=== PATIENT | female | born 1955 | race Caucasian/White ===

== ENCOUNTER 2024-10-15 14:53 | Emergency (ER) | payer OTHER ==
[2024-10-15] MEDS ORDERED: PHENAZOPYRIDINE 100MG TAB PO ONE (15:47)
[2024-10-15] MEDS ORDERED: KETOROLAC 30 MG/ML INJ ONE (15:47)
[2024-10-15] MEDS ORDERED: ACETAMINOPHEN 500 MG TAB ONE (15:47)
[2024-10-15 15:57] LABS: Specific Gravity > 1.030 (1.005-1.030); Sqamous Epithelial <5 /HPF (None Seen); Urine Bacteria <20 /HPF (<20); Urine Bilirubin NEGATIVE (Negative); Urine Blood Trace (Negative); Urine Clarity Clear (Clear); Urine Color Colorless (Yellow); Urine Culture Reflex Order NOT NEEDED; Urine Glucose 4+ (Over) (Negative); Urine Ketones NEGATIVE (Negative); Urine Micro Reflex YN NO BILL MICROSCOPIC; Urine Mucus Slight /HPF (None Seen); Urine Nitrite NEGATIVE (Negative); Urine Protein NEGATIVE (Negative); Urine Urobilinogen Normal (Normal); Urine WBC <5 /HPF (<5)
--- NOTE | 2024-10-15 16:13 | EDPHYS ---
Physician Documentation [facility] Name: Agnes De La Torre Age: 68 yrs Sex: Female : 1955 Arrival Date: 10/15/2024 Time: 14:53 Bed 14 Private MD: ED Physician Hany Bazan HPI: 10/15 15:27 This 68 yrs old Female presents to ER via Ambulatory with complaints of ec2 Urinary Problem - burning sensation blood in urine. 15:27 Patient arrives today for evaluation of dysuria. Reports has been having 1 week of ec2 symptoms. Patient reports increased urinary frequency as well as burning with urination. History of UTIs. No fevers or chills, no nausea or vomiting, denies systemic signs and symptoms. Patient reports no medication allergies, no antibiotic allergies.. Historical: - Allergies: 15:22 No Known Allergies; ap3 - PMHx: 15:22 Hypertensive disorder; Diabetes mellitus; Hypothyroidism; ap3 - PSHx: 15:22 Total abdominal hysterectomy; ap3 - Immunization history:: Adult Immunizations unknown. - Infectious Disease History:: Denies. - Social history:: Smoking status: Patient denies any tobacco usage or history of. ROS: 15:27 Constitutional: as per hpi ec2 Exam: 15:27 Constitutional: GEN: NAD Head: atraumatic Eyes: EOMI Ears: External ears are ec2 normal. CV: Tachycardia LUNGS: no respiratory distress ABD: non-distended, soft, nontender, no guarding, not rigid SKIN: no evidence of rashes MSK: no evidence of trauma Vital Signs: 15:20 BP 188 / 76 Sitting; Pulse 101; Resp 16; Temp 98.3; Pulse Ox 96% ; Weight 58.97 kg; ap3 Height 5 ft. 1 in. ; Pain 10/10; 16:49 BP 162 / 78; Pulse 89; Resp 18; Temp 97.9; Pulse Ox 99% on R/A; ph 15:20 Body Mass Index 24.56 (58.97 kg, 154.94 cm) ap3 15:20 Pain Scale: Adult ap3 MDM: 15:27 Data reviewed: vital signs, nurses notes. ED course: Patient arrives today for ec2 evaluation of dysuria. Examination yields a reassuring abdominal examination, slight tachycardia. Will obtain urine studies, will treat the patient symptoms. Suspect UTI, doubt appendicitis, doubt diverticulitis.. 15:32 Medical Screening Exam initiated ec2 16:12 ED course: On reassessment patient is well-appearing no acute distress. Suspect urinary ec2 tract infection, will start the patient on antibiotics and have her follow-up with primary care. Return precautions given.. 10/15 15:24 Order name: GRADY; Complete Time: 16:01 ec2 Administered Medications: 16:01 Drug: Ketorolac IM 15 mg IM once Route: IM; Site: right deltoid; ph 16:50 Follow up: Response: No adverse reaction ph 16:01 Drug: Acetaminophen PO 1000 mg PO once Route: PO; ph 16:50 Follow up: Response: No adverse reaction ph 16:01 Drug: Phenazopyridine PO 200 mg PO once Route: PO; ph 16:50 Follow up: Response: No adverse reaction ph 16:49 Drug: Trimethoprim-Sulfamethoxazole PO (160 mg-800 mg (DS) 1 tablet PO once Route: PO; ph 16:50 Follow up: Response: No adverse reaction; Medication administered at discharge. ph Disposition Summary: 10/15/24 16:12 Discharge Ordered Notes: Location: Home ec2 Condition: Stable ec2 Diagnosis - UTI/ Urinary tract infection, site not specified ec2 Followup: ec2 - With: Private Physician - When: - Reason: Re-evaluation by your physician Discharge Instructions: - Discharge Summary Sheet ec2 - Urinary Tract Infection, Adult ec2 Forms: - Medication Reconciliation Form ec2 - Antibiotic Education ec2 - Prescription Opioid Use ec2 - Patient Portal Instructions ec2 - Leadership Thank You Letter ec2 Prescriptions: - Pyridium 200 mg Oral Tablet - take 1 tablet ORAL route every 8 hours for 3 days; 9 tablet; Refills: 0, ec2 Product Selection Permitted - Bactrim DS 800-160 mg Oral Tablet - take 1 tablet ORAL route every 12 hours for 7 days; 14 tablet; Refills: 0, ec2 Product Selection Permitted Signatures: Dispatcher [employer] Deirdre Ghotra RN RN Cari Lobo RN RN ap3 Hany Bazan MD MD ec2 Corrections: (The following items were deleted from the chart) 15:24 15:24 Urinalysis W/Microscopic+U.LAB.BRZ ordered. EDMS EDMS
--- NOTE | 2024-10-15 16:13 | ER ---
[facility] Ag[facility] Age: 68 yrs Sex: Female : 1955 Arrival Date: 10/15/2024 Time: 14:53 Bed 14 Private MD: Diagnosis: UTI/ Urinary tract infection, site not specified Presentation: 10/15 15:20 Chief complaint: Patient states: burning and hurting with urination. Coronavirus ap3 screen: At this time, the client does not indicate any symptoms associated with coronavirus-19. Ebola Screen: No symptoms or risks identified at this time. Initial Sepsis Screen: Does the patient meet any 2 criteria? No. Patient's initial sepsis screen is negative. Does the patient have a suspected source of infection? No. Patient's initial sepsis screen is negative. Risk Assessment: Do you want to hurt yourself or someone else? Patient reports no desire to harm self or others. Onset of symptoms is unknown. 15:20 Method Of Arrival: Ambulatory ap3 15:20 Acuity: KWADWO 3 ap3 Triage Assessment: 15:22 General: Appears in no apparent distress. Behavior is calm, cooperative, appropriate ap3 for age. Pain: Complains of pain in pelvis. Historical: - Allergies: 15:22 No Known Allergies; ap3 - PMHx: 15:22 Hypertensive disorder; Diabetes mellitus; Hypothyroidism; ap3 - PSHx: 15:22 Total abdominal hysterectomy; ap3 - Immunization history:: Adult Immunizations unknown. - Infectious Disease History:: Denies. - Social history:: Smoking status: Patient denies any tobacco usage or history of. Screenin:02 [facility] ED Fall Risk Assessment (Adult) History of falling in the last 3 months, ph including since admission No falls in past 3 months (0 pts) Confusion or Disorientation No (0 pts) Intoxicated or Sedated No (0 pts) Impaired Gait No (0 pts) Mobility Assist Device Used No (0 pt) Altered Elimination No (0 pt) Score/Fall Risk Level 0 - 2 = Low Risk Oriented to surroundings, Maintained a safe environment, Hourly rounding (assess needs \T\ fall precautionary measures) done. Abuse screen: Denies threats or abuse. Denies injuries from another. Nutritional screening: No deficits noted. Tuberculosis screening: No symptoms or risk factors identified. Assessment: 16:01 General: Appears in no apparent distress. uncomfortable, Behavior is calm, cooperative, ph appropriate for age. Pain: Complains of pain in pelvis. Neuro: Level of Consciousness is awake, alert, obeys commands, Oriented to person, place, time, situation. : Reports burning with urination, urinary frequency. Derm: Skin is pink, warm \T\ dry. Vital Signs: 15:20 BP 188 / 76 Sitting; Pulse 101; Resp 16; Temp 98.3; Pulse Ox 96% ; Weight 58.97 kg; ap3 Height 5 ft. 1 in. ; Pain 10/10; 16:49 BP 162 / 78; Pulse 89; Resp 18; Temp 97.9; Pulse Ox 99% on R/A; ph 15:20 Body Mass Index 24.56 (58.97 kg, 154.94 cm) ap3 15:20 Pain Scale: Adult ap3 ED Course: 15:09 Patient arrived in ED. ra3 15:11 Hany Bazan MD is Attending Physician. ec2 15:22 Triage completed. ap3 15:22 Arm band placed on right wrist. Patient placed in waiting room, Patient notified of ap3 wait time. 15:25 Deirdre Hobson RN is Primary Nurse. ph 16:02 Patient has correct armband on for positive identification. Bed in low position. Call ph light in reach. Side rails up X 1. Pulse ox on. NIBP on. 16:03 Urine collected: clean catch specimen, clear. ph 16:49 No provider procedures requiring assistance completed. Patient did not have IV access ph during this emergency room visit. Administered Medications: 16:01 Drug: Ketorolac IM 15 mg IM once Route: IM; Site: right deltoid; ph 16:50 Follow up: Response: No adverse reaction ph 16:01 Drug: Acetaminophen PO 1000 mg PO once Route: PO; ph 16:50 Follow up: Response: No adverse reaction ph 16:01 Drug: Phenazopyridine PO 200 mg PO once Route: PO; ph 16:50 Follow up: Response: No adverse reaction ph 16:49 Drug: Trimethoprim-Sulfamethoxazole PO (160 mg-800 mg (DS) 1 tablet PO once Route: PO; ph 16:50 Follow up: Response: No adverse reaction; Medication administered at discharge. ph Medication: 16:02 VIS not applicable for this client. ph Outcome: 16:12 Discharge ordered by . ec2 16:49 Discharged to home ambulatory, ph 16:49 Condition: good 16:49 Discharge instructions given to patient, Instructed on discharge instructions, follow up and referral plans. medication usage, Demonstrated understanding of instructions, follow-up care, medications, Prescriptions given X 2, 16:50 Patient left the ED. ph Signatures: Deirdre Hobson RN RN ph Prokisch, Amanda, RN RN ap3 Hany Bazan MD MD ec2 Candice Fulton ra3
[2024-10-15] MEDS ORDERED: SMZ./TMP. 800/160 MG TABLET ONE (16:43)
[2024-10-15 17:05] VITALS: BP 162/78; TEMP 97.9; O2SAT 99
== END 2024-10-15 16:50 | disposition home or self-care (01) ==
LOC: ER 14:53
DX: N39.0 Urinary tract infection, site not specified (principal); I10 Essential (primary) hypertension; E11.9 Type 2 diabetes mellitus without complications; E03.9 Hypothyroidism, unspecified
CPT/HCPCS: 81001; 96372; 99284

== ENCOUNTER 2024-10-18 00:02 | Emergency (ER) | payer OTHER ==
[2024-10-18] MEDS ORDERED: ONDANSETRON 4 MG/2 ML VIAL ONE (01:03)
[2024-10-18] MEDS ORDERED: NA CHLORIDE 0.9% 500 ML ONE ×2 (01:03→03:26)
[2024-10-18] MEDS ORDERED: KETOROLAC 30 MG/ML INJ ONE (01:03)
[2024-10-18] MEDS ORDERED: INSULIN REGULAR (HUMAN) 100 UNIT/ML ONE ×2 (01:04→03:24)
[2024-10-18 01:06] LABS: Absolute Eosinophils 0.1 K/uL (0-0.5); Absolute Lymphocytes (CBC) 0.8 K/uL (0.7-4.9); Absolute Monocytes 0.2 K/uL (0.1-1.3); Absolute Neutrophil 1.9 K/uL (1.8-8.0); Basophils % 0.7 % (0-1.3); Eosinophils % 1.9 % (0-4.4); Hematocrit 41.3 % (36.0-45.0); Hemoglobin 13.5 g/dL (12.0-15.0); Lymphocytes % 26.6 % (15.3-44.8); MCH 27.4 pg (27.0-35.0); MCHC 32.8 g/dL (32.0-36.0); MCV 83.5 fL (80-100); MPV 8.7 fL (7.6-11.3); Monocytes % 7.5 % (3.3-12.3); Neutrophils % 63.3 % (41.7-73.7); Nucleated Red Blood Cells % 0.3 % (0-0); Platelets 129 thou/uL (152-406); RBC Red Blood Cell Count 4.94 M/uL (3.86-4.86); Red Cell Distribution Width 14.4 % (12.1-15.2)
[2024-10-18 01:11] LABS: Specific Gravity > 1.030 (1.005-1.030); Sqamous Epithelial <5 /HPF (None Seen); Urine Bacteria None Seen /HPF (<20); Urine Bilirubin 1+ (Negative); Urine Blood Negative (Negative); Urine Clarity Clear (Clear); Urine Color Dark-Yellow (Yellow); Urine Culture Reflex Order NOT NEEDED; Urine Glucose 4+ (Over) (Negative); Urine Ketones NEGATIVE (Negative); Urine Microscopic Reflex YN ORDER UMIC; Urine Mucus Slight /HPF (None Seen); Urine Nitrite 1+ (Negative); Urine Protein NEGATIVE (Negative); Urine RBC <5 /HPF (None Seen); Urine Urobilinogen 1+ (Normal); Urine WBC <5 /HPF (<5)
[2024-10-18 01:26] LABS: Albumin 3.6 g/dL (3.4-5.0); Albumin/Globulin Ratio 1.1 (1.1-1.8); Anion Gap 7.7 mEq/L (5.0-15.0); Bilirubin Total 0.4 mg/dL (0.2-1.0); Globulin 3.4 g/dL (2.3-3.5); Potassium 3.7 mEq/L (3.5-5.1)
[2024-10-18] MEDS ORDERED: FENTANYL CITR 100 MCG/2 ML ONE (02:13)
--- NOTE | 2024-10-18 03:00 | RAD REPORT ---
EXAM: CT Abdomen and Pelvis With Intravenous Contrast CLINICAL HISTORY: The patient is 68 years old and is Female; ABD PAIN TECHNIQUE: Axial computed tomography images of the abdomen and pelvis with intravenous contrast. Sagittal an d coronal reformatted images were created and reviewed. This CT exam was performed using one or more of the following dose reduction techniques: automated exposure control, adjustment of the mA a nd/or kV according to patient size, and/or use of iterative reconstruction technique. COMPARISON: No relevant prior studies available. FINDINGS: LUNG BASES: Unremarkable. No mass. No consolidation. ABDOMEN: LIVER: Unremarkable. No mass. GALLBLADDER AND BILE DUCTS: The gallbladder is minimally distended. No calcified gallstones are s een. PANCREAS: No ductal dilation. No mass. SPLEEN: The spleen is enlarged. ADRENALS: Unremarkable. No mass. KIDNEYS AND URETERS: Unremarkable. The kidneys enhance symmetrically. No obstructing renal or ure teral calculus is seen. No hydronephrosis or hydroureter. No perinephric fluid or stranding. STOMACH AND BOWEL: The stomach is decompressed. The small bowel is normal in caliber. A moderate amount of stool is present throughout the colon. There is no mucosal thickening or evidence of obstruction. PELVIS: APPENDIX: The appendix is normal in caliber without surrounding inflammation. BLADDER: Unremarkable. No mass. REPRODUCTIVE: The patient is status post hysterectomy. ABDOMEN and PELVIS: INTRAPERITONEAL SPACE: Unremarkable. No free air. No significant fluid collection. BONES/JOINTS: No acute fracture. SOFT TISSUES: The soft tissues are normal. VASCULATURE: The splenic vein is enlarged. The portal vein is enlarged. LYMPH NODES: Unremarkable. No enlarged lymph nodes. IMPRESSION: No acute findings on this contrasted CT of the abdomen and pelvis to explain the patient's symptoms . Electronically signed by: Marii Parham MD 10/18/2024 02:41 AM [facility] Due to temporary technical issues with the PACS/[employer] reporting system, reports are being emma d by the in-house radiologist without review as a courtesy to ensure prompt reporting the interpreting radiologist is fully responsible for the content of the report. Transcribed Date/Time: 10/18/2024 3:00 AM
[2024-10-18] MEDS ORDERED: CEFTRIAXONE 1000 MG/VIAL ONE (03:25)
--- NOTE | 2024-10-18 04:48 | EDPHYS ---
Physician Documentation [facility] Name: Agnes Pa Age: 68 yrs Sex: Female : 1955 Arrival Date: 10/18/2024 Time: 00:02 Bed 3 Private MD: ED Physician Bird Slaughter HPI: 10/18 00:30 This 68 yrs old Female presents to ER via Unassigned with complaints of Urinary cp Problem, Abdominal Pain. 00:30 The patient presents with urinary symptoms, dysuria, hematuria, lower abdomen pain. cp 00:30 Onset: The symptoms/episode began/occurred gradually, and became worse tonight. cp 00:30 Associated signs and symptoms: Pertinent negatives: constipation, diarrhea, fever, cp vaginal bleeding, vomiting. Severity of symptoms: in the emergency department the symptoms are unchanged, despite home interventions. Historical: - Allergies: 00:33 Tape; lg3 - Home Meds: 00:33 Novolog Sub-Q [Active]; Levothroid Oral [Active]; lg3 - PMHx: 00:33 diabetes mellitus; Hypertensive disorder; Hypothyroidism; lg3 - PSHx: 00:33 Total abdominal hysterectomy; left hand (Total abdominal hysterectomy); lg3 - Immunization history:: Adult Immunizations up to date. - Infectious Disease History:: Denies. - Social history:: Smoking status: Patient denies any tobacco usage or history of. Patient/guardian denies using alcohol, street drugs. ROS: 00:33 Constitutional: Negative for body aches, chills, fever, poor PO intake, cp 00:33 Eyes: Negative for injury, pain, redness, and discharge, cp 00:33 ENT: Negative for drainage from ear(s), ear pain, sore throat, difficulty swallowing, difficulty handling secretions, 00:33 Cardiovascular: Negative for chest pain, palpitations, 00:33 Respiratory: Negative for cough, shortness of breath, wheezing, 00:33 Abdomen/GI: Positive for abdominal pain, nausea, Negative for vomiting, diarrhea, constipation, 00:33 Back: Positive for low back pain, 00:33 : Positive for urinary symptoms, urinary frequency, hematuria, burning with urination, 00:33 Neuro: Negative for altered mental status, dizziness, headache, weakness, 00:33 All other systems are negative, Exam: 00:35 Constitutional: The patient appears in no acute distress, alert, awake, non-toxic, well cp developed, well nourished, uncomfortable, 00:35 Head/Face: Normocephalic, atraumatic. cp 00:35 Eyes: Periorbital structures: appear normal, Conjunctiva: normal, no exudate, no injection, Sclera: no appreciated abnormality, Lids and lashes: appear normal, bilaterally, 00:35 ENT: External ear(s): are unremarkable, Nose: is normal, Mouth: Lips: moist, Oral mucosa: moist, Posterior pharynx: Airway: no evidence of obstruction, patent, 00:35 Chest/axilla: Inspection: normal, 00:35 Cardiovascular: Rate: normal, Rhythm: regular, 00:35 Respiratory: the patient does not display signs of respiratory distress, Respirations: normal, no use of accessory muscles, no retractions, labored breathing, is not present, Breath sounds: are clear throughout, no decreased breath sounds, no stridor, no wheezing, 00:35 Abdomen/GI: Inspection: abdomen appears normal, Bowel sounds: active, all quadrants, Palpation: soft, in all quadrants, moderate abdominal tenderness, in the right lower quadrant and left lower quadrant, rebound tenderness, is not appreciated, involuntary guarding, is not appreciated, 00:35 Back: pain, that is mild, of the low back area and mid back area, ROM is normal, Vital Signs: 00:30 BP 141 / 70; Pulse 91; Resp 16 S; Temp 98.1(TE); Weight 58.97 kg (R); Height 5 ft. 1 lg3 in. (R); Pain 10/10; 01:20 BP 119 / 68; Pulse 80; Resp 16; Pulse Ox 98% ; cp4 02:20 BP 148 / 69; Pulse 82; Resp 18; Pulse Ox 95% ; cp4 03:16 BP 119 / 49; Pulse 78; Resp 18; Pulse Ox 96% ; cp4 04:02 BP 151 / 64; Pulse 81; Resp 18; Pulse Ox 97% ; cp4 04:55 BP 114 / 46; Pulse 71; Resp 18; Pulse Ox 96% ; cp4 00:30 Body Mass Index 24.56 (58.97 kg, 154.94 cm) lg3 00:30 Pain Scale: Adult lg3 MDM: 00:38 Medical Screening Exam initiated 04:47 Data reviewed: vital signs, nurses notes, lab test result(s), radiologic studies, CT cp scan, and as a result, I will discharge patient. 04:47 Differential diagnosis: urinary tract infection, pyelonephritis, sepsis, kidney stone. cp I considered the following discharge prescriptions or medication management in the emergency department Medications were administered in the Emergency Department. See MAR. Care significantly affected by the following chronic conditions: Diabetes, Hypertension. Counseling: I had a detailed discussion with the patient and/or guardian regarding the historical points, exam findings, and any diagnostic results supporting the discharge/admit diagnosis, lab results, radiology results, to return to the emergency department if symptoms worsen or persist or if there are any questions or concerns that arise at home. Response to treatment: the patient's symptoms have markedly improved after treatment, and as a result, I will discharge patient. 10/18 00:30 Order name: CBC with Diff; Complete Time: 01: 10/18 01:29 Interpretation: Normal except: WBC 3.00; RBC 4.94; PLT 129. 10/18 00:30 Order name: CMP; Complete Time: 01:29 10/18 01:29 Interpretation: Normal except: NA 132; GLUC 575; CRE 1.07; GFR 57; ALK 170. 10/18 00:30 Order name: Lipase; Complete Time: : 10/18 00:30 Order name: Urinalysis w/ reflexes; Complete Time: 01:23 10/18 01:24 Interpretation: Normal except: Urine SG > 1.030; UGLUC 4+ (Over); UBILI 1+; UUROB 1+; cp UNIT 1+. 10/18 00:30 Order name: Lactate w/ 2H reflex if indic.; Complete Time: 01:29 10/18 01:29 Interpretation: Reviewed. 10/18 01:05 Order name: Glucose, Ancillary Testing; Complete Time: 01:23 EDTX 10/18 01:29 Order name: Urine Culture 10/18 03:23 Order name: Glucose, Ancillary Testing; Complete Time: 03:48 EDTX 10/18 03:48 Interpretation: Reviewed. 10/18 04:55 Order name: Glucose, Ancillary Testing EDTX 10/18 01:25 Order name: CT Abd/Pelvis - IV Contrast Only 10/18 00:30 Order name: IV Saline Lock; Complete Time: 01:00 cp 10/18 00:30 Order name: Labs collected and sent; Complete Time: 01:00 cp 10/18 00:40 Order name: Accucheck Blood Glucose; Complete Time: 00:53 cp 10/18 03:05 Order name: Accucheck Blood Glucose; Complete Time: 03:15 cp 10/18 04:32 Order name: Accucheck Blood Glucose; Complete Time: 04:44 cp Administered Medications: 01:12 Drug: Insulin Regular Human IVP 10 units IVP once {Co-Signature: [email or web address] (Nadia Cramer RN).} Route: IVP; Site: right antecubital; 01:45 Follow up: Response: No adverse reaction; Blood sugar is lowered cp4 01:13 Drug: NS 0.9% IV 500 ml 500 ml IV at 1 bolus once; to be given as a bolus over 30 cp4 minutes Volume: 500 ml; Route: IV; Rate: 1 bolus; Site: right antecubital; 02:00 Follow up: IV Status: Completed infusion cp4 01:13 Drug: Ketorolac IVP 10 mg 10 mg IVP once Route: IVP; Site: right antecubital; cp4 01:44 Follow up: Response: No adverse reaction cp4 01:13 Drug: Ondansetron IVP 4 mg IVP once; over 2 minutes Route: IVP; Site: right antecubital;cp4 01:44 Follow up: Response: No adverse reaction cp4 02:17 Drug: fentaNYL (PF) IVP 25 mcg IVP once Route: IVP; Site: right antecubital; cp4 03:36 Follow up: Response: No adverse reaction cp4 03:34 Drug: NS 0.9% IV 500 ml 500 ml IV at 1 bolus once; to be given as a bolus over 30 cp4 minutes Volume: 500 ml; Route: IV; Rate: 1 bolus; Site: right antecubital; 05:01 Follow up: Response: No adverse reaction; IV Status: Completed infusion cp4 03:34 Drug: Insulin Regular Human IVP 10 units IVP once {Co-Signature: dalton (Nadia Cramer RN).} Route: IVP; Site: right antecubital; 05:00 Follow up: Response: No adverse reaction cp4 03:36 Drug: Rocephin IV 1 grams IV at calculated rate once; Given slow IV push per pharmacy cp4 instructions Route: IV; Rate: calculated rate; Site: right antecubital; 03:40 Follow up: IV Status: Completed infusion cp4 Disposition Summary: 10/18/24 04:48 Discharge Ordered Notes: Location: Home cp Problem: new cp Symptoms: have improved cp Condition: Stable cp Diagnosis - Diabetes mellitus due to underlying condition with hyperglycemia cp - UTI/ Urinary tract infection, site not specified cp Followup: cp - With: Private Physician - When: 2 - 3 days - Reason: Recheck today's complaints Discharge Instructions: - Discharge Summary Sheet cp - Type 2 Diabetes Mellitus, Diagnosis, Adult cp - Hyperglycemia cp Forms: - Medication Reconciliation Form cp - Antibiotic Education cp - Prescription Opioid Use cp - Patient Portal Instructions cp - Leadership Thank You Letter cp Prescriptions: - Zofran 4 mg Oral Tablet - take 1 tablet ORAL route every 12 hours As needed; 20 tablet; Refills: 0, cp Product Selection Permitted - cefpodoxime 200 mg Oral tablet - take 1 tablet ORAL route every 12 hours for 7 days with food; 14 tablet; cp Refills: 0, Product Selection Permitted Signatures: Dispatcher [employer] EDMS Bird Carrillo PA PA cp Able, Lacie RN RN lg3 Elsa Wheeler cp4 Nadia Cramer RN ha1 Corrections: (The following items were deleted from the chart) 00:34 00:33 Allergies: No Known Allergies; lg3 lg3 01:25 01:25 Abdomen Pelvis W Con+CT.RAD.BRZ ordered. EDMS EDMS
--- NOTE | 2024-10-18 04:48 | ER ---
Nurse's Notes [facility] Name: Agnes Pa Age: 68 yrs Sex: Female : 1955 Arrival Date: 10/18/2024 Time: 00:02 Bed 3 Private MD: Diagnosis: Diabetes mellitus due to underlying condition with hyperglycemia;UTI/ Urinary tract infection, site not specified Presentation: 10/18 00:30 Chief complaint: Patient states: currently being treated for UTI and the pain is lg3 inreasing. Coronavirus screen: Client denies travel out of the [place] in the last 14 days. At this time, the client does not indicate any symptoms associated with coronavirus-19. Ebola Screen: No symptoms or risks identified at this time. Initial Sepsis Screen: Does the patient meet any 2 criteria? No. Patient's initial sepsis screen is negative. Does the patient have a suspected source of infection? No. Patient's initial sepsis screen is negative. Risk Assessment: Do you want to hurt yourself or someone else? Patient reports no desire to harm self or others. Onset of symptoms is unknown. 00:30 Method Of Arrival: Ambulatory lg3 00:30 Acuity: KWADWO 3 lg3 Triage Assessment: 00:33 General: Appears in no apparent distress. uncomfortable, Behavior is calm, cooperative. lg3 Pain: Complains of pain in pelvis. EENT: No deficits noted. No signs and/or symptoms were reported regarding the EENT system. Neuro: Dutta Agitation-Sedation Scale (RASS): 0 - Alert and Calm. Cardiovascular: No deficits noted. Denies chest pain, shortness of breath. Respiratory: No deficits noted. Airway is patent Respiratory effort is even, unlabored, Respiratory pattern is regular, symmetrical. GI: No deficits noted. Reports lower abdominal pain. : Reports burning with urination, cramping, pain urgency, urinary frequency. Derm: No deficits noted. No signs and/or symptoms reported regarding the dermatologic system. Skin is intact, is healthy with good turgor, Skin is dry, Skin is normal, Skin temperature is warm. Musculoskeletal: No deficits noted. No signs and/or symptoms reported regarding the musculoskeletal system. Circulation, motion, and sensation intact. Range of motion: intact in all extremities. Historical: - Allergies: 00:33 Tape; lg3 - Home Meds: 00:33 Novolog Sub-Q [Active]; Levothroid Oral [Active]; lg3 - PMHx: 00:33 diabetes mellitus; Hypertensive disorder; Hypothyroidism; lg3 - PSHx: 00:33 Total abdominal hysterectomy; left hand (Total abdominal hysterectomy); lg3 - Immunization history:: Adult Immunizations up to date. - Infectious Disease History:: Denies. - Social history:: Smoking status: Patient denies any tobacco usage or history of. Patient/guardian denies using alcohol, street drugs. Screenin:14 [facility] ED Fall Risk Assessment (Adult) History of falling in the last 3 months, cp4 including since admission No falls in past 3 months (0 pts) Confusion or Disorientation No (0 pts) Intoxicated or Sedated No (0 pts) Impaired Gait No (0 pts) Mobility Assist Device Used No (0 pt) Altered Elimination No (0 pt) Score/Fall Risk Level 0 - 2 = Low Risk Oriented to surroundings, Maintained a safe environment, Assessed \T\ reinforced patient's understanding of fall precautions, Hourly rounding (assess needs \T\ fall precautionary measures) done. Abuse screen: Denies threats or abuse. Nutritional screening: No deficits noted. Tuberculosis screening: No symptoms or risk factors identified. Assessment: 01:14 General: Appears in no apparent distress. uncomfortable, Behavior is calm, cooperative, cp4 appropriate for age. Pain: Complains of pain in pelvis Pain currently is 10 out of 10 on a pain scale. Neuro: Level of Consciousness is awake, alert, obeys commands, Oriented to person, place, time, situation. Cardiovascular: Patient's skin is warm and dry. Respiratory: Airway is patent Respiratory effort is even, unlabored. GI: Abdomen is round non-distended, Bowel sounds present X 4 quads. Abd is soft and non tender X 4 quads. : Reports pain in suprapubic area Pain is 10 out of 10 on a pain scale. EENT: No signs and/or symptoms were reported regarding the EENT system. Derm: No signs and/or symptoms reported regarding the dermatologic system. Musculoskeletal: No signs and/or symptoms reported regarding the musculoskeletal system. 02:20 Reassessment: Patient appears in no apparent distress at this time. Patient and/or cp4 family updated on plan of care and expected duration. Pain level reassessed. Patient is alert, oriented x 3, equal unlabored respirations, skin warm/dry/pink. 03:17 Reassessment: Patient appears in no apparent distress at this time. Patient and/or cp4 family updated on plan of care and expected duration. Pain level reassessed. Patient is alert, oriented x 3, equal unlabored respirations, skin warm/dry/pink. Vital Signs: 00:30 BP 141 / 70; Pulse 91; Resp 16 S; Temp 98.1(TE); Weight 58.97 kg (R); Height 5 ft. 1 lg3 in. (R); Pain 10/10; 01:20 BP 119 / 68; Pulse 80; Resp 16; Pulse Ox 98% ; cp4 02:20 BP 148 / 69; Pulse 82; Resp 18; Pulse Ox 95% ; cp4 03:16 BP 119 / 49; Pulse 78; Resp 18; Pulse Ox 96% ; cp4 04:02 BP 151 / 64; Pulse 81; Resp 18; Pulse Ox 97% ; cp4 04:55 BP 114 / 46; Pulse 71; Resp 18; Pulse Ox 96% ; cp4 00:30 Body Mass Index 24.56 (58.97 kg, 154.94 cm) lg3 00:30 Pain Scale: Adult lg3 ED Course: 00:05 Patient arrived in ED. mr 00:17 Bird Carrillo PA is PHCP. cp 00:17 Bird Slaughter MD is Attending Physician. cp 00:33 Triage completed. lg3 00:33 Arm band placed on right wrist. lg3 01:01 Inserted saline lock: 20 gauge in right antecubital area, using aseptic technique. af3 Blood collected. Flushed with 10 mL NS. 01:12 Elsa Wheeler is Primary Nurse. cp4 01:14 Bed in low position. Call light in reach. Side rails up X2. cp4 01:14 No provider procedures requiring assistance completed. cp4 02:03 CT Abd/Pelvis - IV Contrast Only In Process Unspecified. EDMS 04:58 Provided Education on: hyperglycemia and uti.. cp4 04:58 intact, bleeding controlled, No redness/swelling at site. Pressure dressing applied. cp4 Administered Medications: 01:12 Drug: Insulin Regular Human IVP 10 units IVP once {Co-Signature: ha1 (Nadia Cramer cp4 RN).} Route: IVP; Site: right antecubital; 01:45 Follow up: Response: No adverse reaction; Blood sugar is lowered cp4 01:13 Drug: NS 0.9% IV 500 ml 500 ml IV at 1 bolus once; to be given as a bolus over 30 cp4 minutes Volume: 500 ml; Route: IV; Rate: 1 bolus; Site: right antecubital; 02:00 Follow up: IV Status: Completed infusion cp4 01:13 Drug: Ketorolac IVP 10 mg 10 mg IVP once Route: IVP; Site: right antecubital; cp4 01:44 Follow up: Response: No adverse reaction cp4 01:13 Drug: Ondansetron IVP 4 mg IVP once; over 2 minutes Route: IVP; Site: right antecubital;cp4 01:44 Follow up: Response: No adverse reaction cp4 02:17 Drug: fentaNYL (PF) IVP 25 mcg IVP once Route: IVP; Site: right antecubital; cp4 03:36 Follow up: Response: No adverse reaction cp4 03:34 Drug: NS 0.9% IV 500 ml 500 ml IV at 1 bolus once; to be given as a bolus over 30 cp4 minutes Volume: 500 ml; Route: IV; Rate: 1 bolus; Site: right antecubital; 05:01 Follow up: Response: No adverse reaction; IV Status: Completed infusion cp4 03:34 Drug: Insulin Regular Human IVP 10 units IVP once {Co-Signature: ha1 (Nadia Cramer cp4 RN).} Route: IVP; Site: right antecubital; 05:00 Follow up: Response: No adverse reaction cp4 03:36 Drug: Rocephin IV 1 grams IV at calculated rate once; Given slow IV push per pharmacy cp4 instructions Route: IV; Rate: calculated rate; Site: right antecubital; 03:40 Follow up: IV Status: Completed infusion cp4 Medication: 01:14 VIS not applicable for this client. cp4 Outcome: 04:48 Discharge ordered by MD. cp 04:58 Discharged to home ambulatory, cp4 04:58 Condition: stable 04:58 Discharge instructions given to patient, Instructed on discharge instructions, follow up and referral plans. medication usage, Demonstrated understanding of instructions, follow-up care, medications, Prescriptions given X 2, 05:00 Patient left the ED. cp4 Signatures: Dispatcher [employer] EDMS DiorLeda, Reg Reg mr Bird Carrillo PA PA cp Able, Lacie, RN RN lg3 Elsa Weheler cp4 Marie Calvillo 3 Nadia Cramer RN ha1 Corrections: (The following items were deleted from the chart) 00:34 00:33 Allergies: No Known Allergies; 3 3
[2024-10-18 05:04] VITALS: TEMP 98.1
[2024-10-18 05:12] VITALS: BP 114/46; O2SAT 96
== END 2024-10-18 05:00 | disposition home or self-care (01) ==
LOC: ER 00:02
DX: N39.0 Urinary tract infection, site not specified (principal); E11.65 Type 2 diabetes mellitus with hyperglycemia; Z79.4 Long term (current) use of insulin; I10 Essential (primary) hypertension
CPT/HCPCS: 96361; 87088; 85025; 81001; 87086; 36415; 82947 ×3; 83605; 83690; 80053; 74177; 96375; 96374; 99284; Q9967; J3010; J2405; J7040 ×2; J0696